=== PATIENT | female | born 1940 | race Caucasian/White ===

== ENCOUNTER 2020-02-28 21:09 | Emergency (ER) | payer MEDICARE, MEDICAID ==
--- NOTE | 2020-02-28 22:13 | RAD ---
Portable frontal chest radiograph: 02/28/2020 COMPARISON: 12/08/2019 HISTORY: Cough FINDINGS: Nonspecific patchy opacity noted in the left perihilar region/left lung base. There is elev ation of the left hemidiaphragm. Right lung appears clear. Midline sternotomy wires are present. There is atherosclerotic calcification of the aortic arch. IMPRESSION: Patchy nonspecific increased density in the left base may signify volume loss or nonspeci fic/atypical infectious pneumonitis. Follow-up imaging following treatment advised.
[2020-02-28 22:27] LABS: Bilirubin Negative (Negative); Blood, Urine Trace (Negative); Clarity Clear (Clear); Glucose, Urine (Dipstick) Normal (Negative); Ketone, Urine Negative (Negative); Leukocyte 500 Leu/uL (Negative); Mucous/LPF Rare LPF (<2+); Nitrite 1+ (Negative); Protein, Urine (Dipstick) 10 mg/dL (Neg-Trace); RBC/HPF 0-3 HPF (0-3); Specific Gravity, Urine 1.021 (1.002-1.036); Squamous Epithelial 0-3 HPF (0-3); Urobilinogen Normal mg/dL (Less than 2)
[2020-02-28 22:37] LABS: Bacteria/HPF 1+ HPF (None Seen)
[2020-02-28 22:44] LABS: #Eosinphils 0.2 thou/uL (0.0-0.7); #Lymphocytes 1.8 thou/uL (1.20-3.40); #Monocytes 0.7 thou/uL (0.11-0.59); #Neutrophils 6.6 thou/uL (1.40-6.50); %Basophils 0.5 % (0.0-1.0); %Eosinophils 1.9 % (0.0-10.0); %Lymphocytes 19.1 % (21.0-51.0); %Monocytes 7.8 % (0.0-10.0); %Neutrophils 70.6 % (42.0-75.0); Hemoglobin 12.8 g/dL (12.0-16.0); Mean Corpuscular Hemoglobin 30.2 pg (27.0-31.0); Mean Corpuscular Volume 94.6 fL (78.0-98.0); Mean Platelet Volume 7.7 fL (7.4-10.4); Platelet Count 242 thou/uL (130-400); RBC Distribution Width 13.4 % (11.5-14.5); Red Blood Cell (RBC) Count 4.24 mill/uL (4.20-5.40); White Blood Cell (WBC) Count 9.4 thou/uL (4.8-10.8)
[2020-02-28 23:05] LABS: ALT (SGPT) 31 U/L (8-55); AST (SGOT) 46 U/L (5-34); Albumin 2.9 g/dL (3.4-4.8); Alkaline Phosphatase 92 U/L (40-110); Anion Gap 12 mmol/L (10-20); BUN (Urea Nitrogen) 14 mg/dL (9.8-20.1); Bilirubin, Total 0.7 mg/dL (0.2-1.2); Calc. Creatinine Clearance 0 mL/min (70-130); Calcium 7.8 mg/dL (7.8-10.44); Carbon Dioxide 24 mmol/L (23-31); Chloride 106 mmol/L (98-107); Globulin 2.9 g/dL (2.4-3.5); Glucose 119 mg/dL (83-110); Potassium 3.1 mmol/L (3.5-5.1); Protein, Total 5.8 g/dL (6.0-8.3); Sodium 139 mmol/L (136-145)
--- NOTE | 2020-03-02 16:31 | EKG ---
Test Reason : Blood Pressure : / mmHG Vent. Rate : 104 BPM Atrial Rate : 104 BPM P-R Int : 202 ms QRS Dur : 134 ms QT Int : 410 ms P-R-T Axes : 026 -32 -34 degrees QTc Int : 539 ms Sinus tachycardia Left axis deviation Right bundle branch block T wave abnormality, consider inferior ischemia Abnormal ECG Confirmed by NOEL GAN M.D. ([id number]), pictures editor ANUSHA DE OLIVEIRA ([id number]) on 03/02/2020 4:31:18 PM Referred By: Confirmed By:NOEL GAN M.D.
== END 2020-02-29 00:03 ==
LOC: ERS 21:09
DX: N39.0 Urinary tract infection, site not specified (principal); E78.5 Hyperlipidemia, unspecified; E78.00 Pure hypercholesterolemia, unspecified; I10 Essential (primary) hypertension; Z79.82 Long term (current) use of aspirin; Z79.899 Other long term (current) drug therapy
CPT/HCPCS: 36415; 51701; 71045; 81015; 93005

== ENCOUNTER 2021-10-08 13:33 | Emergency (ER) | payer MEDICARE, MEDICAID ==
[2021-10-08 14:50] LABS: #Eosinphils 0.2 thou/uL (0.0-0.7); #Lymphocytes 1.2 thou/uL (1.20-3.40); #Monocytes 0.8 thou/uL (0.11-0.59); #Neutrophils 7.5 thou/uL (1.40-6.50); %Eosinophils 1.7 % (0.0-10.0); %Monocytes 8.7 % (0.0-10.0); %Neutrophils 77.6 % (42.0-75.0); Hemoglobin 14.5 g/dL (12.0-16.0); Mean Corpuscular HGB CONC 31.6 g/dL (32.0-36.0); Mean Corpuscular Hemoglobin 30.7 pg (27.0-31.0); Mean Corpuscular Volume 97.3 fL (78.0-98.0); Mean Platelet Volume 6.9 fL (7.4-10.4); Platelet Count 269 thou/uL (130-400); RBC Distribution Width 12.8 % (11.5-14.5); Red Blood Cell (RBC) Count 4.71 mill/uL (4.20-5.40); White Blood Cell (WBC) Count 9.7 thou/uL (4.8-10.8)
[2021-10-08 15:13] LABS: ALT (SGPT) 8 U/L (8-55); AST (SGOT) 17 U/L (5-34); Albumin 3.7 g/dL (3.4-4.8); Alkaline Phosphatase 117 U/L (40-110); Anion Gap 14 mmol/L (10-20); BUN (Urea Nitrogen) 14 mg/dL (9.8-20.1); Bilirubin, Total 0.7 mg/dL (0.2-1.2); Calc. Creatinine Clearance 0 mL/min (70-130); Carbon Dioxide 26 mmol/L (23-31); Chloride 102 mmol/L (98-107); Estimated GFR 77; Globulin 3.4 g/dL (2.4-3.5); Glucose 106 mg/dL (83-110); Magnesium 1.7 mg/dL (1.6-2.6); Potassium 4.3 mmol/L (3.5-5.1); Protein, Total 7.1 g/dL (5.8-8.1); Sodium 138 mmol/L (136-145)
[2021-10-08 17:14] LABS: Troponin I 0.011 ng/mL (< 0.028)
== END 2021-10-08 18:02 ==
LOC: ERS 13:33
DX: R07.9 Chest pain, unspecified (principal); E78.5 Hyperlipidemia, unspecified; I10 Essential (primary) hypertension
CPT/HCPCS: 36415; 71045; 80053; 83735; 83880; 84484; 85025; 93005

== ENCOUNTER 2022-05-22 18:11 | Observation (INO) | payer MEDICARE, MEDICAID ==
[2022-05-22] MEDS ORDERED: Lidocaine 1% w/Epinephrine 1:100K 20 ML VIAL ONE (19:19)
[2022-05-22] MEDS ORDERED: Labetalol HCl 100 MG/20 ML VIAL SLOW IVP PRN (20:49)
[2022-05-22] MEDS ORDERED: hydrALAZINE 20 MG/ML VIAL SLOW IVP PRN (20:49)
[2022-05-22] MEDS ORDERED: TETANUS, DIPHTHERIA TOX,ADULT (TDVAX) 0.5 ML VIAL IM ONE (20:53)
[2022-05-22] MEDS ORDERED: Ondansetron ODT 4 MG TAB PO PRN (20:53)
[2022-05-22] MEDS ORDERED: Dextrose 5% in Water 1,000 ML IV PRN (20:53)
[2022-05-22] MEDS ORDERED: Dextrose 50% Abboject 50 ML SYRINGE SLOW IVP PRN (20:53)
[2022-05-22] MEDS ORDERED: Ondansetron PF 4 MG/2 ML Vial IVP PRN (20:53)
[2022-05-22] MEDS ORDERED: Ipratropium/Albuterol 3 ML NEB NEB PRN (20:53)
[2022-05-22] MEDS ORDERED: Famotidine 20 MG TAB PO SCH (21:00)
[2022-05-22 22:48] LABS: Prothrombin Time 13.4 sec (12.0-14.7)
[2022-05-22 22:49] LABS: PTT 22.8 sec (22.9-36.1)
[2022-05-22 22:54] LABS: ALT (SGPT) 8 U/L (8-55); AST (SGOT) 15 U/L (5-34); Albumin 3.8 g/dL (3.4-4.8); Alkaline Phosphatase 96 U/L (40-110); Anion Gap 19 mmol/L (10-20); BUN (Urea Nitrogen) 17 mg/dL (9.8-20.1); Bilirubin, Total 0.3 mg/dL (0.2-1.2); Calc. Creatinine Clearance 0 mL/min (70-130); Calcium 9.1 mg/dL (7.8-10.44); Carbon Dioxide 20 mmol/L (23-31); Chloride 106 mmol/L (98-107); Estimated GFR 75; Globulin 3.3 g/dL (2.4-3.5); Glucose 113 mg/dL (83-110); Magnesium 1.9 mg/dL (1.6-2.6); Phosphorus 3.7 mg/dL (2.3-4.7); Potassium 3.8 mmol/L (3.5-5.1); Protein, Total 7.1 g/dL (5.8-8.1); Sodium 141 mmol/L (136-145)
[2022-05-22 23:03] LABS: #Basophils 0.1 thou/uL (0.0-0.2); #Eosinphils 0.1 thou/uL (0.0-0.7); #Lymphocytes 2.1 thou/uL (1.20-3.40); #Monocytes 1.1 thou/uL (0.11-0.59); #Neutrophils 11.3 thou/uL (1.40-6.50); %Basophils 0.3 % (0.0-1.0); %Lymphocytes 14.1 % (21.0-51.0); %Monocytes 7.7 % (0.0-10.0); %Neutrophils 76.8 % (42.0-75.0); Hemoglobin 16.2 g/dL (12.0-16.0); Mean Corpuscular HGB CONC 32.6 g/dL (32.0-36.0); Mean Corpuscular Hemoglobin 31.5 pg (27.0-31.0); Mean Corpuscular Volume 96.7 fl (78.0-98.0); Mean Platelet Volume 7.3 fL (7.4-10.4); Platelet Count 250 10x3/uL (130-400); Red Blood Cell (RBC) Count 5.15 mill/uL (4.20-5.40); White Blood Cell (WBC) Count 14.7 10x3/uL (4.8-10.8)
[2022-05-22 23:22] VITALS: BMI 21.8
[2022-05-22] MEDS ORDERED: Sodium Chloride 0.9% 1,000 ML IV SCH (23:30)
[2022-05-22] MEDS ORDERED: QUEtiapine 25 MG TAB PO SCH (23:45)
[2022-05-22] MEDS: Acetaminophen 325 MG TAB PO PRN (23:58)
[2022-05-23 00:09] LABS: SARS-CoV-2 NAA Rapid Test Not Detected (NotDetected)
[2022-05-23] MEDS ORDERED: Ipratropium/Albuterol 3 ML NEB NEB PRN (06:41)
[2022-05-23 08:17] LABS: #Basophils 0.1 thou/uL (0.0-0.2); #Eosinphils 0.3 thou/uL (0.0-0.7); #Lymphocytes 1.6 thou/uL (1.20-3.40); #Monocytes 0.7 thou/uL (0.11-0.59); #Neutrophils 4.5 thou/uL (1.40-6.50); %Basophils 0.7 % (0.0-1.0); %Eosinophils 4.3 % (0.0-10.0); %Lymphocytes 21.9 % (21.0-51.0); %Monocytes 9.3 % (0.0-10.0); %Neutrophils 63.8 % (42.0-75.0); Hemoglobin 14.4 g/dL (12.0-16.0); Mean Corpuscular HGB CONC 35.4 g/dL (32.0-36.0); Mean Corpuscular Hemoglobin 34.3 pg (27.0-31.0); Mean Platelet Volume 7.8 fL (7.4-10.4); Platelet Count 208 10x3/uL (130-400); RBC Distribution Width 12.9 % (11.5-14.5); Red Blood Cell (RBC) Count 4.21 mill/uL (4.20-5.40); White Blood Cell (WBC) Count 7.1 10x3/uL (4.8-10.8)
[2022-05-23 08:32] LABS: Anion Gap 17 mmol/L (10-20); BUN (Urea Nitrogen) 13 mg/dL (9.8-20.1); Calc. Creatinine Clearance 47 mL/min (70-130); Calcium 8.7 mg/dL (7.8-10.44); Carbon Dioxide 17 mmol/L (23-31); Chloride 108 mmol/L (98-107); Estimated GFR 78; Glucose 94 mg/dL (83-110); Magnesium 1.7 mg/dL (1.6-2.6); Phosphorus 3.2 mg/dL (2.3-4.7); Potassium 3.9 mmol/L (3.5-5.1); Sodium 138 mmol/L (136-145)
[2022-05-23] MEDS ORDERED: Magnesium 2 GM/50 ML(in water) 2 GM in Premix Bag 1 BAG IVPB SCH (09:00)
[2022-05-23] MEDS ORDERED: FLU VACC QS2022-23(65YR UP)/PF 240 MCG/0.7 ML SYRINGE IM ONE (09:00)
[2022-05-23] MEDS ORDERED: PHOS-NAK 1 PKT PACK PO SCH (09:00)
[2022-05-23] MEDS ORDERED: Metoprolol Tartrate 25 MG TAB PO SCH (09:00)
[2022-05-23] MEDS: Acetaminophen 325 MG TAB PO PRN (11:33)
[2022-05-23] MEDS ORDERED: ALPRAZolam 1 MG TAB PO SCH ×3 (12:30→21:00)
[2022-05-23 15:11] VITALS: BP 113/74
[2022-05-23 16:19] VITALS: TEMP 98.4
[2022-05-23] MEDS ORDERED: Donepezil HCl 10 MG TAB PO SCH (21:00)
[2022-05-23] MEDS ORDERED: QUEtiapine 25 MG TAB PO SCH (21:00)
[2022-05-23] MEDS ORDERED: Sertraline 100 MG TAB PO SCH (21:00)
== END 2022-05-23 17:03 ==
LOC: ERS 18:11 → SURG A 21:04
PROVIDERS: ADMIT Surgery; ATTEND Surgery
DX: S06.6X0A Traumatic subarachnoid hemorrhage without loss of consciousness, initial encounter (principal); S01.112A Laceration without foreign body of left eyelid and periocular area, initial encounter; F03.90 Unspecified dementia, unspecified severity, without behavioral disturbance, psychotic disturbance, mood disturbance, and anxiety; I25.10 Atherosclerotic heart disease of native coronary artery without angina pectoris; E78.00 Pure hypercholesterolemia, unspecified; I10 Essential (primary) hypertension; Z85.3 Personal history of malignant neoplasm of breast; Z79.82 Long term (current) use of aspirin; Z79.899 Other long term (current) drug therapy; Z88.8 Allergy status to other drugs, medicaments and biological substances; Z95.1 Presence of aortocoronary bypass graft; Z95.2 Presence of prosthetic heart valve; Z99.3 Dependence on wheelchair; Z20.822 Contact with and (suspected) exposure to COVID-19; W05.0XXA Fall from non-moving wheelchair, initial encounter; Y92.129 Unspecified place in nursing home as the place of occurrence of the external cause
CPT/HCPCS: 12011; 70450 ×2; 72125; 80048; 80053; 83735 ×2; 84100 ×2; 85025 ×2; 85610; 85730; 99285; G0378 ×3; U0002; 36415; G0390; J3475; J7050